=== PATIENT | female | born 1955 | race Caucasian/White ===

== ENCOUNTER → 2021-10-20 | Outpatient (CLI) | payer MEDICARE, OTHER ==
--- NOTE | 2021-10-20 18:35 | Diagnostic Imaging Report ---
EXAMINATION: Lumbosacral spine 2 or 3 views. HISTORY: Lumbago w/sciatica, other muscle spasm COMPARISON: None available. FINDINGS: Mild scoliotic deformity of the spine is noted. Otherwise alignment is preserved with no significant subluxation appreciated. The vertebral body heights appear maintained. There is intervertebral disc space narrowing and endplate sclerosis with anterior spurring at L5-S1. There is facet hypertrophy at L4-L5 and L5-S1. Soft tissues are unremarkable IMPRESSION: Degenerative findings predominantly at L4-L5 and L5-S1, as above. Dictated by: Dictated on workstation # [id number]
== END ==
LOC: RAD 16:42
PROVIDERS: ATTEND Nurse Practitioner Family
DX: M54.41 Lumbago with sciatica, right side (principal); M62.838 Other muscle spasm; I10 Essential (primary) hypertension; E03.9 Hypothyroidism, unspecified
CPT/HCPCS: 72100

== ENCOUNTER 2022-11-08 10:00 | Outpatient (RCR) | payer MEDICARE, OTHER | END 2022-12-08 | disposition home or self-care (01) | PROVIDERS: ATTEND Family Medicine | DX: Z12.31 Encounter for screening mammogram for malignant neoplasm of breast (principal); M54.50 Low back pain, unspecified; G89.29 Other chronic pain; I10 Essential (primary) hypertension; E03.9 Hypothyroidism, unspecified; E89.40 Asymptomatic postprocedural ovarian failure; E55.9 Vitamin D deficiency, unspecified ==